=== PATIENT | male | born 1975 | race African-American/Black ===

== ENCOUNTER → 2018-02-07 14:04 | Outpatient (CLI) | payer BC, SELFPAY ==
--- NOTE | 2018-02-07 14:09 | US_ITS ---
US soft tissue head and neck CLINICAL INDICATION: ITS.REASON: SUBMANDIBULAR LYMPHADENOPATHY ORDERING PHYSICIAN: Darcy Spears PATIENT AGE: 42 years Comparison: None FINDINGS: In the submental region there is a 18 x 13 x 5 mm hypoechoic area with some internal blood flow and a linear area of the internal increased echogenicity consistent with a hypoechoic lymph node. No other significant anomalies are evident. IMPRESSION: Submental palpable abnormality corresponds to a hypoechoic mildly prominent lymph node
== END ==
PROVIDERS: Family Provider Family Medicine; PCP Family Medicine; Visit Provider Nurse Practitioner Family
DX: R59.0 Localized enlarged lymph nodes (principal)
CPT/HCPCS: 76536